=== PATIENT | female | born 1985 | race Caucasian/White ===

== ENCOUNTER 2018-06-25 09:33 | Outpatient (CLI) | payer MEDICAID | END 2018-06-25 09:34 | disposition home or self-care (01) | LOC: NS 09:33 | PROVIDERS: ATTEND Family Medicine | DX: E66.9 Obesity, unspecified (principal); Z71.3 Dietary counseling and surveillance; Z68.37 Body mass index [BMI] 37.0-37.9, adult | CPT/HCPCS: 97802 ==

== ENCOUNTER 2020-02-10 17:18 | Outpatient (CLI) | payer OTHER | END 2020-02-10 17:19 | disposition home or self-care (01) | LOC: COV 17:18 | PROVIDERS: ATTEND Family Medicine | DX: Z20.828 Contact with and (suspected) exposure to other viral communicable diseases (principal) ==

== ENCOUNTER 2021-02-23 05:12 | Emergency (ER) | payer OTHER, BC ==
[2021-02-23 05:55] LABS: BASOPHILS # (AUTO) 0.1 10^3/uL (0.0-0.1); BASOPHILS % (AUTO) 0.6 %; EOSINOPHILS # (AUTO) 0.3 10^3/uL (0.0-0.7); EOSINOPHILS % (AUTO) 3.9 %; HCT - HEMATOCRIT 37.2 % (37.0-47.0); HGB - HEMOGLOBIN 12.3 g/dL (12.0-16.0); LYMPHOCYTES # (AUTO) 2.3 10^3/uL (1.5-3.5); LYMPHOCYTES % (AUTO) 29.1 %; MEAN CORPUSCULAR HEMOGLOBIN 28.8 pg (27.0-31.0); MEAN CORPUSCULAR HGB CONC 33.1 g/dL (32.0-36.0); MEAN CORPUSCULAR VOLUME 87.1 fL (81.0-99.0); MEAN PLATELET VOLUME 11.5 fL (7.9-10.8); MONOCYTES % (AUTO) 12.8 %; NEUTROPHILS # (AUTO) 4.3 10^3/uL (1.5-6.6); NEUTROPHILS % (AUTO) 53.2 %; PLT - PLATELET COUNT 182 10^3/uL (130-450); RED BLOOD COUNT 4.27 10^6/uL (4.20-5.40); RED CELL DISTRIBUTION WIDTH 13.1 % (12.0-15.0)
[2021-02-23 06:11] LABS: ALBUMIN 3.9 g/dL (3.2-5.5); ALBUMIN/GLOBULIN RATIO 1.3 (1.0-2.2); BILIRUBIN,TOTAL 0.4 mg/dL (0.2-1.0); CALCIUM 8.8 mg/dL (8.5-10.3); CREATININE 0.9 mg/dL (0.4-1.0); POTASSIUM 3.7 mmol/L (3.5-5.0); TOTAL PROTEIN 6.9 g/dL (6.7-8.2)
[2021-02-23] MEDS ORDERED: KETOROLAC 30 MG/ML VIAL IVP STA (07:56)
--- NOTE | 2021-02-23 08:00 | ED Physician Documentation ---
PD HPI CHEST PAIN - Stated complaint Stated Complaint: CHEST/BACK PX - Chief complaint Chief Complaint: Cardiac - History obtained from History obtained from: Patient - Additional information Additional information: Patient comes emergency department chief complaint of chest pain radiating through to the back for the last 3 days. She states the pain is substernal and that it has been steady and without any fluctuation. She states that it hurts about that it keeps her awake at night. She denies shortness of breath. No nausea or vomiting. No abdominal pain. No radiation to anywhere else. She states that she has been under a lot of stress lately and has not been sleeping well prior but especially now because of the pain. She states she tried aspirin at home that did not help. No history of any medical problems in terms of hypertension, diabetes, or elevated cholesterol. The patient does take Adderall. She denies any history of smoking. No family history of coronary artery disease at a young age. The patient states that she has no history of gallbladder issues that she knows of, though she thinks her sister probably does. Patient denies any symptoms like this before, even on a lesser level. Patient states she has had acid reflux in the past but this does not feel like that. Nothing seems to make the pain better or worse. No other complaints at this time. Review of Systems Ten Systems: 10 systems reviewed and negative Constitutional: reports: Reviewed and negative Eyes: reports: Reviewed and negative Ears: reports: Reviewed and negative Nose: reports: Reviewed and negative Throat: reports: Reviewed and negative Cardiac: reports: Chest pain / pressure Respiratory: reports: Reviewed and negative GI: reports: Reviewed and negative : reports: Reviewed and negative Skin: reports: Reviewed and negative Musculoskeletal: reports: Reviewed and negative Neurologic: reports: Reviewed and negative Psychiatric: reports: Reviewed and negative Endocrine: reports: Reviewed and negative Immunocompromised: reports: Reviewed and negative PD PAST MEDICAL HISTORY - Past Medical History Past Medical History: Yes Psych: Depression, Anxiety, ADD/ADHD - Past Surgical History Past Surgical History: Yes Ortho: Carpal Tunnel surgery HEENT: Tonsil/Adenoidectomy - Present Medications Home Medications: Ambulatory Orders Medication Instructions Recorded Confirmed Cyclobenzaprine [Flexeril] 10 mg PO TID PRN #20 tablet 02/23/21 - Allergies Allergies/Adverse Reactions: Allergies Allergy/AdvReac Type Severity Reaction Status Date / Time No Known Drug Allergies Allergy Verified 02/23/21 05:31 - Social History Does the pt smoke?: No Smoking Status: Never smoker Does the pt drink ETOH?: No Does the pt have substance abuse?: No - Immunizations Immunizations are current?: Yes PD ED PE NORMAL - Vitals Vital signs reviewed: Yes - General General: Alert and oriented X 3, No acute distress, Well developed/nourished - HEENT HEENT: Atraumatic, PERRL, EOMI, Moist mucous membranes - Neck Neck: Supple, no meningeal sign - Cardiac Cardiac: RRR, No murmur, Strong equal pulses - Respiratory Respiratory: No respiratory distress, Clear bilaterally - Abdomen Abdomen: Soft, Non tender, Non distended - Derm Derm: Normal color, Warm and dry, No rash - Extremities Extremities: No deformity, No edema, No calf tenderness / cord - Neuro Neuro: Alert and oriented X 3, casing crew 2-12 intact, No motor deficit, No sensory deficit, Normal speech - Psych Psych: Normal mood, Normal affect PD ED PE EXPANDED - Free text exam Free text exam: Reproducible chest pain with palpation over sternum. Reproducible back pain with palpation over intrascapular musculature. Results - Vitals Vitals: Vital Signs - 24 hr 02/23/21 02/23/21 02/23/21 05:33 06:28 08:06 Temperature 36.7 C Heart Rate 69 60 73 Respiratory 14 13 22 Rate Blood Pressure 114/77 112/75 113/80 O2 Saturation 99 99 100 Oxygen O2 Source Room air - EKG (time done) 0526 Rate: Rate (enter#) (74) Rhythm: NSR [place]: Normal Intervals: Normal [place] QRS: Normal Ischemia: Normal ST segments Compare to prior EKG: Old EKG unavailable Computer interpretation: Agree with computer - Labs Labs: Laboratory Tests 02/23/21 02/23/21 02/23/21 05:40 05:40 05:40 WBC 8.0 RBC 4.27 Hgb 12.3 Hct 37.2 MCV 87.1 MCH 28.8 MCHC 33.1 RDW 13.1 Plt Count 182 MPV 11.5 H Neut # (Auto) 4.3 Lymph # (Auto) 2.3 [place] # (Auto) 1.0 Eos # (Auto) 0.3 Baso # (Auto) 0.1 Absolute Nucleated RBC 0.00 Nucleated RBC % 0.0 Sodium 134 L Potassium 3.7 Chloride 103 Carbon Dioxide 23 Anion Gap 8.0 BUN 16 Creatinine 0.9 Estimated GFR (MDRD) 70 L Glucose 98 Calcium 8.8 Total Bilirubin 0.4 AST 12 ALT 16 Alkaline Phosphatase 42 Troponin I High Sens < 2.3 L Total Protein 6.9 Albumin 3.9 Globulin 3.0 Albumin/Globulin Ratio 1.3 Lipase 27 - Rads (name of study) Chest x-ray Radiology: Final report received, EMP read indepedently, See rad report (Negative) PD MEDICAL DECISION MAKING - ED course Complexity details: reviewed results, re-evaluated patient, considered differential, d/w patient ED course: The patient was worked up with labs, EKG, and chest x-ray, all of which were unremarkable. Her symptoms had been steady for 3 solid days, and this made the likelihood of most of the more serious/emergent conditions unlikely. Work-up also did not show evidence this. Furthermore, the patient did have reproducible pain on palpation. I discussed other possibilities with the patient, such as esophageal spasm or biliary colic, though I think biliary colic is unlikely. We have discussed home management of the symptoms, and the usual indications for return. Departure - Departure Disposition: 01 Home, Self Care Clinical Impression: Chest pain Qualifiers: Chest pain type: other chest pain Qualified Code(s): R07.89 - Other chest pain Condition: Stable Instructions: ED Chest Pain Atypical Unkn Cause Prescriptions: Cyclobenzaprine [Flexeril] 10 mg PO TID PRN #20 tablet PRN Reason: Spasms Comments: Your labs and EKG look good, as does your x-ray. There is no evidence of an emergent cause of your chest and back pain. Given that has been going on steadily for the last 3 days, most serious or emergent causes of the pain can be ruled out on this grounds alone. However, we have done extensive work-up to be sure to rule out an emergent cause, regardless. You do have tenderness which recreates the pain over the areas where you are hurting, and this indicates most likely a musculoskeletal source of the pain. Is not uncommon to have some muscle tension in both the chest and the mid back when you are under stress, and this can cause inflammation of the tendinous connections to the sternum, or breastbone. This can be a cause of pain there. You also do have some muscular tenderness between her shoulder blades, and this is also a common place to develop muscle tension. Since these muscles are also important for maintaining posture and contributing to movement of the trunk, as well as neck position, there constantly and use, and can cause a constant sense of pain if inflamed. You may take ibuprofen and the muscle relaxer that has been prescribed to help with your symptoms. Please follow-up with your doctor today as you have planned to do. Discharge Date/Time: 02/23/21 08:18
[2021-02-23 08:07] VITALS: BP 113/80
--- NOTE | 2021-02-23 08:35 | XRAY Report ---
PROCEDURE: Chest 1 View X-Ray INDICATIONS: Chest pain TECHNIQUE: One view of the chest was acquired. COMPARISON: None FINDINGS: Surgical changes and devices: None. Lungs and pleura: No pleural effusions or pneumothorax. Lungs are clear. Mediastinum: Mediastinal contours appear normal. Heart size is normal. Bones and chest wall: No suspicious bony lesions. Overlying soft tissues appear unremarkable. IMPRESSION: No evidence acute pulmonary process. Findings are concordant with preliminary interpretation provided by [facility]. Reviewed by: Travon Benitez MD on 02/23/2021 8:33 AM PST Approved by: Travon Benitez MD on 02/23/2021 8:33 AM PST Station ID: [id number]
== END 2021-02-23 08:18 | disposition home or self-care (01) ==
LOC: ED 05:12
DX: R07.89 Other chest pain (principal); M54.9 Dorsalgia, unspecified
CPT/HCPCS: 36415; 80053; 83690; 84484; 85025; 93005; 96374; 99284

== ENCOUNTER 2021-08-25 18:50 | Outpatient (CLI) | payer BC ==
--- NOTE | 2021-08-25 19:47 | Ultrasound Report ---
PROCEDURE: Duplex Ext Veins Left INDICATIONS: PAIN IN LEFT CALF TECHNIQUE: Real-time imaging, as well as color and pulse Doppler interrogation, were performed of the lower extr emity deep veins from the inguinal ligament to the popliteal fossa. COMPARISON: None. FINDINGS: The deep veins are normally compressible, and free of intraluminal thrombus. Color and pu lse Doppler demonstrate normal phasic intraluminal flow. There is normal augmentation response to di stal compression maneuver. IMPRESSION: No evidence of DVT in visualized left lower extremity veins. Reviewed by: Lucian Kirk MD on 08/25/2021 7:46 PM PDT Approved by: Lucian Kirk MD on 08/25/2021 7:46 PM PDT Station ID: [id number]
== END 2021-08-25 18:51 | disposition home or self-care (01) ==
LOC: DI 18:50
PROVIDERS: ATTEND Family Medicine
DX: M79.662 Pain in left lower leg (principal)

== ENCOUNTER 2023-11-02 12:07 | Emergency (ER) | payer BC, MEDICAID, MEDICARE, OTHER ==
[2023-11-02 12:23] VITALS: O2SAT 99
[2023-11-02 12:48] LABS: BASOPHILS # (AUTO) 0.1 10^3/uL (0.0-0.1); BASOPHILS % (AUTO) 0.6 %; EOSINOPHILS # (AUTO) 0.3 10^3/uL (0.0-0.7); EOSINOPHILS % (AUTO) 3.8 %; HCT - HEMATOCRIT 40.4 % (37.0-47.0); HGB - HEMOGLOBIN 12.9 g/dL (12.0-16.0); LYMPHOCYTES # (AUTO) 3.1 10^3/uL (1.5-3.5); LYMPHOCYTES % (AUTO) 37.8 %; MEAN CORPUSCULAR HEMOGLOBIN 27.9 pg (27.0-31.0); MEAN CORPUSCULAR HGB CONC 31.9 g/dL (32.0-36.0); MEAN CORPUSCULAR VOLUME 87.3 fL (81.0-99.0); MONOCYTES # (AUTO) 0.9 10^3/uL (0.0-1.0); MONOCYTES % (AUTO) 11.4 %; NEUTROPHILS # (AUTO) 3.8 10^3/uL (1.5-6.6); NEUTROPHILS % (AUTO) 45.9 %; PLT - PLATELET COUNT 307 10^3/uL (130-450); RED BLOOD COUNT 4.63 10^6/uL (4.20-5.40); RED CELL DISTRIBUTION WIDTH 13.9 % (12.0-15.0); WHITE BLOOD COUNT 8.3 x10^3/uL (4.8-10.8)
[2023-11-02 13:03] LABS: ALBUMIN 4.2 g/dL (3.2-5.5); ALBUMIN/GLOBULIN RATIO 1.4 (1.0-2.2); BILIRUBIN,TOTAL 0.4 mg/dL (0.2-1.0); CALCIUM 9.8 mg/dL (8.5-10.3); CREATININE 1.1 mg/dL (0.6-1.3); POTASSIUM 3.8 mmol/L (3.5-4.5); TOTAL PROTEIN 7.3 g/dL (6.4-8.9)
[2023-11-02] MEDS: ONDANSETRON 4 MG/2 ML VIAL IVP STA (13:25)
[2023-11-02] MEDS: SODIUM CHLORIDE 0.9% 1,000 ML IV STA (13:25)
[2023-11-02] MEDS: KETOROLAC 15 MG/ML VIAL IVP STA ×2 (13:26→15:49)
[2023-11-02 13:59] LABS: BILIRUBIN,URINE NEGATIVE (NEGATIVE); GLUCOSE, URINE (UA) NEGATIVE (NEGATIVE); KETONES,URINE (UA) 15 mg/dL (NEGATIVE); LEUKOCYTE ESTERASE, URINE NEGATIVE (NEGATIVE); NITRITE,URINE NEGATIVE (NEGATIVE); OCCULT BLOOD,URINE TRACE-INTA (NEGATIVE); PH,URINE 5.5 PH (5.0-7.5); PROTEIN,URINE NEGATIVE (NEGATIVE); UROBILINOGEN,URINE 0.2 (NORMAL) E.U./dL (NORMAL)
[2023-11-02 14:06] LABS: CLARITY,URINE CLEAR (CLEAR); HCG UR QUAL NEGATIVE
--- NOTE | 2023-11-02 14:08 | ED Physician Documentation ---
History of Present Illness - Stated complaint Stated Complaint: , LOWER BACK PX - Chief complaint Chief Complaint: Abd Pain - Additonal information Additional information: Patient is a 38-year-old female with no significant past medical history presents to the emergency department with left lower flank pain going on for the past 3 days with urinary symptoms of difficulty urinating and dysuria and frequency with urination. Patient notes pain has been progressively worsening. She notes today she developed nausea and vomiting. She denies any fevers or chills. She has been unable to eat or drink much today due to persistent vomiting which she feels is secondary to pain. She has no history of urolithiasis. She denies seeing any blood in her urine. She denies being . She finished her last menstrual period about 2 days ago. She was recently traveling in the throat when symptoms started over the last 2 days. PD PAST MEDICAL HISTORY - Past Medical History Psych: Depression, Anxiety, ADD/ADHD - Past Surgical History Past Surgical History: Yes Ortho: Carpal Tunnel surgery HEENT: Tonsil/Adenoidectomy - Present Medications Home Medications: Ambulatory Orders Medication Instructions Recorded Confirmed Cyclobenzaprine [Flexeril] 10 mg PO TID PRN #20 tablet 02/23/21 HYDROcod/ACETAM 5/325 [[place] 5/325] 1 - 2 tab PO Q6H PRN #15 tablet 11/02/23 Ondansetron Odt [Zofran] 4 mg TL Q6H PRN #10 tablet 11/02/23 Tamsulosin [Flomax] 0.4 mg PO DAILY #14 cap 11/02/23 - Allergies Allergies/Adverse Reactions: Allergies Allergy/AdvReac Type Severity Reaction Status Date / Time No Known Drug Allergies Allergy Verified 11/02/23 12:22 - Social History Does the pt smoke?: No Smoking Status: Never smoker Does the pt drink ETOH?: No Does the pt have substance abuse?: No - Immunizations Immunizations are current?: Yes PD ED PE NORMAL - Vitals Vital signs reviewed: Yes - General General: Alert and oriented X 3 - HEENT HEENT: Atraumatic, PERRL - Neck Neck: Supple, no meningeal sign - Cardiac Cardiac: RRR, No murmur, No gallop, No rub - Respiratory Respiratory: No respiratory distress, Clear bilaterally - Abdomen Abdomen: Normal bowel sounds, Non tender - Back Back: No CVA TTP, No spinal TTP - Derm Derm: Normal color, Warm and dry, No rash - Extremities Extremities: No deformity - Neuro Neuro: Alert and oriented X 3 - Psych Psych: Normal mood, Normal affect Results - Vitals Vitals: Vital Signs - 24 hr 11/02/23 11/02/23 11/02/23 12:10 14:24 16:44 Temperature 36.5 C Heart Rate 66 64 75 Respiratory 22 16 20 Rate Blood Pressure 149/93 H 150/90 H 160/85 H O2 Saturation 99 11/02/23 11/02/23 17:04 19:21 Temperature 36.6 C Heart Rate 75 88 Respiratory 18 18 Rate Blood Pressure 160/85 H 150/88 H O2 Saturation 99 Oxygen O2 Source Room air - Labs Labs: Laboratory Tests 11/02/23 11/02/23 11/02/23 12:43 12:43 13:45 WBC 8.3 RBC 4.63 Hgb 12.9 Hct 40.4 MCV 87.3 MCH 27.9 MCHC 31.9 L RDW 13.9 Plt Count 307 MPV 11.0 H Neut # (Auto) 3.8 Lymph # (Auto) 3.1 [place] # (Auto) 0.9 Eos # (Auto) 0.3 Baso # (Auto) 0.1 Absolute Nucleated RBC 0.00 Nucleated RBC % 0.0 Sodium 137 Potassium 3.8 Chloride 105 Carbon Dioxide 26 Anion Gap 6.0 BUN 12 Creatinine 1.1 Estimated GFR (MDRD) 55 L Glucose 118 H Calcium 9.8 Total Bilirubin 0.4 AST 15 ALT 20 Alkaline Phosphatase 50 Total Protein 7.3 Albumin 4.2 Globulin 3.1 Albumin/Globulin Ratio 1.4 Lipase 17 Urine Color YELLOW Urine Clarity CLEAR Urine pH 5.5 Ur Specific [place] >=1.030 H Urine Protein NEGATIVE Urine Glucose (UA) NEGATIVE Urine Ketones 15 H Urine Occult Blood TRACE-INTA Urine Nitrite NEGATIVE Urine Bilirubin NEGATIVE Urine Urobilinogen 0.2 (NORMAL) Ur Leukocyte Esterase NEGATIVE Ur Microscopic Review NOT INDICATED Urine Culture Comments NOT INDICATED Urine HCG, Qual NEGATIVE PD Medical Decision Making - ED course Complexity details: reviewed old records, reviewed results ED course: Patient is a 38-year-old female presenting to the emergency department with left lower flank pain and lower abdominal pain that has been going on for about 2 days with hesitancy frequency and dysuria. No blood in her urine no history of nephrolithiasis. Patient denies any fevers but she has been having nausea and vomiting that started today. Vitals on arrival are reassuring she is afebrile nontachycardic. Physical exam shows reproducible left lower quadrant tenderness and left CVA tenderness. No right sided abdominal pain negative Rovsing sign no rebound or guarding. Labs here in the emergency department show No significant leukocytosis UA shows no signs of UTI creatinine is 1.1 but this appears close to patient's baseline of 0.9 in the past. No significant change could be secondary additionally to dehydration given persistent nausea and vomiting. CT scan for possible kidney stone obtained here in emergency department shows 3 mm stone at UVJ with hydronephrosis. CT scan here in the emergency department additionally does show right sided ovarian cyst with some mild inflammatory changes around recommending pelvic ultrasound for further evaluation. Patient's pain seems to be persistent however her nausea and vomiting seems to have resolved. Will order second dose of Toradol for pain control here in the emergency department. Patient did receive a liter of fluids. Ultrasound here in the emergency department shows avascular right ovarian cystic lesion around 5 cm in size largest diameter. Concerning for endometrioma versus hemorrhagic cyst hemoglobin is stable here in emergency department no concern for intra-abdominal bleeding. Recommending follow-up by ultrasound in 6 to 12 months. There does appear to be good flow to right ovarian vasculature. No appreciable ovarian edema to suggest ovarian torsion. Updated patient on reassuring findings. She was able to tolerate p.o. here in emergency department for small second dose of morphine giving due to length of stay and pain has returned. Will give short course of [place] for pain control as well as Flomax to help patient pass kidney stone. Number for urology given for patient for follow-up and strict return precautions given. Patient instructed to return with any persistent nausea vomiting fevers difficulty urinating worsening pain or any other new or worsening symptoms. Patient agreeable with this plan she will follow-up with her PCP regarding right ovarian ultrasound and further evaluation as well as for further evaluation of hepatic steatosis. Departure - Departure Disposition: 01 Home, Self Care Clinical Impression: Kidney stone on left side, Hydronephrosis with renal and ureteral calculous obstruction, Abdominal pain, Right ovarian cyst, Nausea and vomiting, Hepatic steatosis Condition: Good Follow-Up: Elias aCrdoso MD [Provider Admit Priv/Credential] - Prescriptions: Tamsulosin [Flomax] 0.4 mg PO DAILY #14 cap HYDROcod/ACETAM 5/325 [[place] 5/325] 1 - 2 tab PO Q6H PRN #15 tablet PRN Reason: Pain Ondansetron Odt [Zofran] 4 mg TL Q6H PRN #10 tablet PRN Reason: Nausea / Vomiting Comments: You were seen here in the emergency department for your symptoms of abdominal pain nausea vomiting your workup. Did show a kidney stone with obstruction left UVJ which means it is about to pass this is able to be passed at home as you are able to eat drink and pain is under control. Watch for any worsening pain persistent nausea vomiting or if you develop any fevers. You can follow-up with urology I have given you their number in the outpatient setting if symptoms do not resolve at home. Additionally I have given you pain medications and antinausea medications to take for your symptoms at home. Additionally you were found to have a right sided cyst about 5 cm ultrasound showed good blood flow here in emergency department and I feel safe sending you home however you need repeat imaging about 6 to 12 months. Additionally you did have the incidental finding of hepatic steatosis continue to monitor these labs and imaging with y our primary care doctor. This could be a concern for fatty liver disease. Forms: PCP List
[2023-11-02] MEDS: MORPHINE 2 MG/ML CARPUJECT IVP STA ×2 (14:14→19:30)
--- NOTE | 2023-11-02 16:24 | CT Report ---
PROCEDURE: Abdomen/Pelvis WO INDICATIONS: concern for kidney stone TECHNIQUE: A CT scan of the abdomen and pelvis was performed without the use of intravenous contrast. Images we re recorded and evaluated at appropriate window settings. Reformats: coronal and sagittal. For radiat ion dose reduction, the following was used: automated exposure control, adjustment of mA and/or kV ac cording to patient size. COMPARISON: None. FINDINGS: Image quality: Diagnostic. Lower chest: Unremarkable. Liver: No contour-deforming mass. Hepatic steatosis. Gallbladder: No radiopaque stones or wall thickening. Biliary tree: No intrahepatic or extrahepatic dilation, accounting for age. Spleen: No splenomegaly. Pancreas: No pancreatic ductal dilation. Adrenals: No adrenal nodule. Kidneys and ureters: Left [id number] hydroureteronephrosis is present. Obstruction stone at the left ureterovesicular junction measuring 3 mm. No right renal stones or hydronephrosis. Stomach, bowel and peritoneum: No gastric or small bowel dilation. No abnormal wall thickening. No pa thologic free fluid. Normal appendix. Lymph nodes: No central or retroperitoneal adenopathy. Vessels: No infrarenal aortic aneurysm. Reproductive organs: Possible enlarged right ovary with mild surrounding inflammatory changes. Bladder: Bladder wall thickness is normal, accounting for underdistention. No calcified bladder stone s. Pelvic lymph nodes: No adenopathy by size criteria. Bones: No aggressive osseous abnormality. Other: Small fat-containing umbilical hernia. IMPRESSION: 1.Obstructing stone at the left ureterovesicular junction measuring 3 mm resulting in mild to moderat e upstream hydroureteronephrosis. 2.Possible enlarged right ovary with mild surrounding inflammatory changes, not well evaluated on non contrast CT. Recommend pelvic ultrasound for further evaluation. 3.Hepatic steatosis. Reviewed by: Tera Almonte MD on 11/02/2023 4:23 PM PDT Approved by: Tera Almonte MD on 11/02/2023 4:23 PM PDT Station ID: [id number]
[2023-11-02 19:23] VITALS: BP 150/88
--- NOTE | 2023-11-02 19:30 | Ultrasound Report ---
PROCEDURE: Pelvic w/Transvag+Doppler Ltd INDICATIONS: right ovarian cyst TECHNIQUE: Real-time scanning was performed of the pelvic organs, with image documentation. Additional endovagi nal scanning was necessary due to incomplete visualization of the adnexal and endometrial structures by transabdominal scanning. Doppler interrogation was performed of the ovaries bilaterally. COMPARISON: Same day CT FINDINGS: Uterus: Uterus is anteverted and normal in size at 10.7 x 4.9 x 7.0 cm. The myometrium is homogeneo us. The endometrium measures 8.6 mm in combined thickness. Ovaries: The right ovary measures 4.4 x 3.0 x 3.7 cm, with a calculated ovarian volume of 26 cc. Th e left ovary measures 2.6 x 1.8 x 1.9 cm, with a calculated ovarian volume of 4.6 cc. Appropriate bl ood flow to the ovaries with Doppler interrogation. Less than 12 follicles can be seen in each ovar y. No adnexal masses are seen. Avascular right ovarian cystic lesion with low-level internal echogen icity measuring 5.0 x 2.8 x 3.2 cm. Other: No pathologic free abdominal or pelvic fluid. IMPRESSION: Patent ovarian vasculature, without ovarian edema to suggest ovarian torsion. Avascular right ovarian cystic lesion with low-level internal echogenicity measuring 5.0 x 2.8 x 3.2 cm. Findings could indicate an endometrioma versus hemorrhagic cyst. Consider follow-up in 6-12 weeks with ultrasound. Reviewed by: Armaan Vicente MD on 11/02/2023 7:28 PM PDT Approved by: Armaan Vicente MD on 11/02/2023 7:28 PM PDT Station ID: [id number]
== END 2023-11-02 19:56 | disposition home or self-care (01) ==
LOC: ED 12:07
DX: N13.2 Hydronephrosis with renal and ureteral calculous obstruction (principal); N83.201 Unspecified ovarian cyst, right side; R11.2 Nausea with vomiting, unspecified; F32.A Depression, unspecified; F41.9 Anxiety disorder, unspecified
CPT/HCPCS: 36415; 80053; 81001; 81003; 81025; 83690; 85025; 87086; 93976; 96374; 96375; 96376; 99284